=== PATIENT | male | born 1990 | race Caucasian/White ===

== ENCOUNTER 2018-07-16 11:49 | Emergency (ER) | payer SELFPAY ==
[~2018-07-16] VITALS: Ht 182.9 cm; Wt 81.0 kg
[2018-07-16] MEDS ORDERED: AMOXICILLIN500 M2 PO (12:04)
[2018-07-16] MEDS ORDERED: TORADOL PO (12:04)
[2018-07-16 12:10] VITALS: BP 129/85
== END 2018-07-16 12:17 | disposition home or self-care (01) | DRG 159 ==
LOC: ED 11:49
DX: K02.9 Dental caries, unspecified (principal); F17.210 Nicotine dependence, cigarettes, uncomplicated